=== PATIENT | female | born 1960 | race Caucasian/White ===

== ENCOUNTER 2025-07-13 13:50 | Emergency (ER) | payer MEDICARE, SELFPAY ==
--- NOTE | 2025-07-13 14:00 | ED_ITS ---
HPI - URI/Sore Throat General Chief Complaint: Upper Respiratory Infection Stated Complaint: flu symptoms Time Seen by Provider: 07/13/25 14:11 Source: patient, RN notes reviewed and old records reviewed Mode of arrival: ambulatory Limitations: no limitations History of Present Illness HPI Narrative: 65-year-old female presents to the [facility] with concerns for flu like symptoms. . Patient reports 2 days of nausea vomiting diarrhea. States she has had multiple episodes of diarrhea and vomiting today. Symptoms started on Sunday, 2 days ago. Reports abdominal pain. No treatment prior to arrival. Reports that she had a fever of 102.6 as well as a headache. Patient states that she called her primary was told to come to an urgent care and get IV fluids. Onset (ago): day(s) (2) Treatments prior to arrival: none Related Data Home Medications ?Medication ?Instructions ?Recorded ?Confirmed ?Last Taken ?Type albuterol sulfate 90 mcg/actuation inhalation 07/13/25 Unknown History aerosol inhaler aspirin 81 mg chewable tablet 07/13/25 Unknown Histo ry clopidogrel 75 mg tablet mg 07/13/25 Unknown History cyclobenzaprine 10 mg tablet mg 07/13/25 Unknown Hist ory empagliflozin 10 mg tablet mg 07/13/25 Unknown Histor y (Jardiance) famotidine 20 mg tablet mg 07/13/25 Unknown History famotidine 40 mg tablet mg 07/13/25 Unknown History fluticasone fur. 100 mcg-umeclid inhalation 07/13/25 Unknown History 62.5 mcg-vilant 25 mcg inhalat.powder (Trelegy Ellipta) furosemide 20 mg tablet mg 07/13/25 Unknown History losartan 25 mg tablet mg 07/13/25 Unknown History metoprolol succinate 100 mg mg PO 07/13/25 Unknown Hi story tablet,extended release 24 hr potassium chloride 20 mEq meq PO 07/13/25 Unknown His tory tablet,extended release ranolazine 1,000 mg mg PO 07/13/25 Unknown Hist ory tablet,extended release,12 hr rosuvastatin 20 mg tablet mg 07/13/25 Unknown History trazodone 100 mg tablet mg 07/13/25 Unknown History Allergies Allergy/AdvReac Type Severity Reaction Status Date / Time adhesive tape Allergy Rash Verified 07/13/25 14:16 hydrocodone AdvReac Severe Nausea and Verified 07/13/25 14:16 Vomiting Review of Systems Review of Systems: All systems reviewed & are unremarkable except as noted in HPI and below Constitutional: Constitutional: Reports as per HPI, Reports body ache(s) and Reports fever(s) ENT: Reports system reviewed and no additional complaints, except as documented Cardiovascular: Cardiovascular: Reports no additional cardiovascular complaints, Denies chest pain and Denies dyspnea Respiratory: Respiratory: Reports no additional respiratory complaints, Denies chest congestion, Denies cough and Denies dyspnea Gastrointestinal: Gastrointestinal: Reports as per HPI, Reports abdominal pain, Reports diarrhea, Reports nausea and Reports vomiting Musculoskeletal: Musculoskeletal: Reports no additional musculoskeletal complaints Integumentary/Breasts: Skin/Breast: Reports system reviewed and no additional complaints, except as docu PMFSH Past Medical History Medical History (Updated 07/13/25 @ 18:59 by Brisa Graham APRN) Peripheral vascular disease High blood cholesterol History of high blood pressure Surgical History Surgical History (Updated 07/13/25 @ 18:53 by Brisa Graham APRN) H/O abdominal aortic aneurysm repair Comments At the time of my signature, I reviewed and agree with the nursing past medical, surgical, social, and family history. There is no relevant family history pertinent to the patient complaint. Exam Const: General: cooperative, well developed, alert, acute distress moderate, ill appearing acutely and chronically, uncomfortable and well nourished Nutritional Appearance: obese Orientation/consciousness: patient oriented x3 Limitations: no limitations HENMT: Head: normal to inspection Eyes: General: appearance normal, both eyes and all related structures Alignment and Position: alignment normal Neck: Neck: normal visual inspection, full ROM, no lymphadenopathy and no meningeal signs Chest: Chest palpation & inspection: normal inspection of the chest Resp: Effort & Inspection: normal respiratory effort and able to speak in complete sentences Cardio: Rate: regular rate GI: GI Palp: Yes abdominal tenderness, Yes Tenderness to palpation present (GI) and No Guarding due to palpation present (GI) Auscultation: Hypoactive bowel sounds present Skin: General skin exam: normal color and no rashes or lesions noted Neuro: General: patient oriented x3, gait normal, moves all extremities and no meningeal signs Cognition (Neuro): normal cognition Speech: normal speech Gait exam (Neuro): Normal gait present Extrem: General: normal to inspection, full ROM, capillary refill normal and normal gait Psych: Appearance: grossly normal and well kempt Mental Status: mental status grossly normal Speech and movement: Normal speech and movement present and Clear speech present Affect: normal affect Attitude: cooperative Course Course Level of Care: Express Care Visit Vital Signs Vital signs: Vital Signs Temperature 97.7 F 07/13/25 14:10 Pulse Rate 76 07/13/25 14:10 Respiratory Rate 18 07/13/25 14:10 Blood Pressure 118/56 L 07/13/25 14:10 Pulse Oximetry 94 07/13/25 14:10 Oxygen Delivery Room Air 07/13/25 14:10 Temperature 97.7 F 07/13/25 14:10 Pulse Rate 76 07/13/25 14:10 Respiratory Rate 18 07/13/25 14:10 Blood Pressure 118/56 L 07/13/25 14:10 Pulse Oximetry 94 07/13/25 14:10 Oxygen Delivery Room Air 07/13/25 14:10 Reviewed Transfer Transfered to: [facility] ( per patient request) Transportation: Other ( POV, per patient request, declining EMS states that her dad will drive her) Transfer rationale: patient with nausea vomiting and diarrhea, unable to keep foods down for 2 days. Patient with generalized abdominal pain, sending for higher level care unable to do IV fluids or complete evaluation for this patient. History of a AAA. Accepting physician: Dr. Zazueta, spoke with Ling DEAN MDM - URI/Sore Throat MDM Narrative Medical decision making narrative: patient with 2 day history of nausea vomiting diarrhea. Unable to keep any fluids down, increased abdominal pain sending for higher level of care. Transfer instructions reviewed with patient go directly to the ER. Do not eat or drink until cleared by ER provider. EMS was offered however patient wants to go to [facility] and with like her father to drive her. All questions have been answered, and the patient deny any further questions Some parts of this dictation were generated by voice recognition software and may contain typographical and/or grammatical inaccuracies. Differential Diagnosis Differential diagnosis: Likely upper respiratory infection, viral infection and other ( gastroenteritis, bowel blockage, acute abdomen) Lab Data Labs: Lab Results 07/13/25 Range/Units 14:28 POC Influenza A Ag Negative (Negative) POC Influenza B Ag Negative (Negative) POC SARS CoV-2 Ag Negative (Negative) reviewed Critical Care Time Critical Care Time Critical Care Time: No Discharge Plan Discharge Clinical Impression: Abdominal pain, Nausea vomiting and diarrhea Patient Disposition: Acute Care Hospital Condition: Stable Patient Language: Pashto Prescriptions: No Action cyclobenzaprine 10 mg tablet famotidine 40 mg tablet metoprolol succinate 100 mg tablet extended release 24 hr PO clopidogrel 75 mg tablet famotidine 20 mg tablet trazodone 100 mg tablet losartan 25 mg tablet aspirin 81 mg tablet,chewable furosemide 20 mg tablet albuterol sulfate 90 mcg/actuation HFA aerosol inhaler INHALATION rosuvastatin 20 mg tablet ranolazine 1,000 mg tablet extended release 12 hr PO potassium chloride 20 mEq tablet extended release PO Jardiance 10 mg tablet Trelegy Ellipta 100-62.5-25 mcg blister with device INHALATION Follow-up/Referrals: Stone,Chula Smith [Primary Care Provider, Unknown]
[2025-07-13 14:10] VITALS: BP 118/56; PULSE 76; RESP 18; TEMP 36.5; O2SAT 94
[2025-07-13 14:30] LABS: EDCOVIDSCREEN Negative (Negative); EDINFLUASCREEN Negative (Negative); EDINFLUBSCREEN Negative (Negative)
== END 2025-07-13 14:33 | disposition short-term general hospital (02) ==
LOC: EXPCOLL 13:56
PROVIDERS: Emergency Provider Nurse Practitioner; PCP Nurse Practitioner
DX: R10.9 Unspecified abdominal pain (principal); R11.2 Nausea with vomiting, unspecified; R19.7 Diarrhea, unspecified; Z20.822 Contact with and (suspected) exposure to COVID-19; I10 Essential (primary) hypertension; E78.00 Pure hypercholesterolemia, unspecified; I73.9 Peripheral vascular disease, unspecified; Z79.82 Long term (current) use of aspirin
CPT/HCPCS: 87426; 87804; 99202; G0463